=== PATIENT | male | born 1955 | race Caucasian/White ===

== ENCOUNTER 2020-03-25 01:18 | Outpatient (CLI) | payer MEDICARE, OTHER, SELFPAY ==
[2020-03-25 17:41] LABS: SARS-CoV-2 RNA PCR Negative
== END 2020-03-25 01:19 | disposition home or self-care (01) ==
LOC: ANHCOVIDDT 01:18
PROVIDERS: Visit Provider Internal Medicine Gastroenterology
DX: Z01.812 Encounter for preprocedural laboratory examination (principal); Z20.828 Contact with and (suspected) exposure to other viral communicable diseases
CPT/HCPCS: 87635; C9803; U0003

== ENCOUNTER 2020-03-27 02:27 | Day surgery (SDC) | payer MEDICARE, OTHER, SELFPAY ==
[2020-03-21 10:28] VITALS: BMI 25.2
[2020-03-27 07:11] VITALS: BP 148/83; PULSE 70; RESP 18; TEMP 36.4; O2SAT 99; BMI 25.2
[2020-03-27 07:26] LABS: Glucose Point of Care 138 (65-105)
[2020-03-27] MEDS: LACTATED RINGERS 1,000 ML 150 ML IV CONT (07:26)
--- NOTE | 2020-03-27 08:03 | P.PNAN_ITS ---
Anes - Initial Pre Proc Eval Procedure: Operation Date: 03/27/20 08:00 Proposed Procedures p Screening Colonoscopy - James Spence MD Date/Time: 03/27/20 08:03 Surgeon: James Spence MD Pre Op Diagnosis: hx of colon polyps Patient Data Age: 65 Gender: M Height: 5 ft 7 in Weight: 73.1 kg Last Vital Signs Temp 97.5 F L 03/27/20 07:11 Pulse 70 03/27/20 07:11 Resp 18 03/27/20 07:11 BP 148/83 H 03/27/20 07:11 Pulse Ox 99 03/27/20 07:11 Allergies Allergy/AdvReac Type Severity Reaction Status Date / Time Sulfa (Sulfonamide Allergy Rash Verified 03/27/20 07:10 Antibiotics) acetaminophen AdvReac Other Verified 03/27/20 07:10 NSAIDS (Non-Steroidal AdvReac Other Verified 03/27/20 07:10 Anti-Inflamma Home Medications Medication Instructions Recorded Confirmed Type allopurinol 100 mg PO DAILY 03/21/20 03/21/20 History amlodipine 5 mg PO DAILY 03/21/20 03/21/20 History benazepril 40 mg PO DAILY 03/21/20 03/21/20 History calcitriol 0.25 mcg PO 3XW 03/21/20 03/21/20 History hydralazine 100 mg PO BID 03/21/20 03/27/20 History insulin NPH isoph U-100 human See Rx Instructions .ROUTE .COMPLEX 03/21/20 03/21/20 History [Humulin N NPH U-100 Insulin] insulin regular human [Humulin R See Rx Instructions .ROUTE .COMPLEX 03/21/20 03/21/20 History Regular U-100 Insuln] mycophenolate sodium 540 mg PO BID 03/21/20 03/27/20 History tacrolimus 1 mg PO BID 03/21/20 03/21/20 History Laboratory Tests 03/27/20 07:23 POC Capillary Glucose 138 mg/dl H mg/dl (65-105) Patient hx anesthesia problems: none Family hx anesthesia problems: none PMFSH Past Medical History Medical History (Updated 03/27/20 @ 08:02 by Gorge Mancera MD) Diabetes Hyperlipidemia Hypertension Surgical History Surgical History (Updated 03/27/20 @ 08:02 by Gorge Mancera MD) H/O kidney transplant Social History Social History Smoking status: Never smoker Alcohol intake: current Drinks per week: 3 Alcohol use details: BEER Substance use: current Substance use type: marijuana Other substance usage details: MEDICAL CARD Last use: DAILY Living arrangements: with family Spiritual care concerns: No Anes - Eval Final PreProcedure Day of Procedure 03/27/20 08:03 Patient weight: normal Heart: regular rate and rhythm Lungs: clear to auscultation Airway: Mallampati scale class II Neurological: alert and oriented Last oral intake: >/= 8 hours ASA classification: III Emergent: no Anesthetic plan: proceed Anesthesia type and monitoring: general GIVS and standard monitoring Informed Consent: The patient's anesthetic plan and its attendant risks and bene fits were discussed with the patient/family/POA. Questions were solicited and answers provided to the satisfaction of the patient/family/POA.
--- NOTE | 2020-03-27 08:04 | WPDGICN ---
Assessment and Plan Assessment and plan (1) History of colon polyps: Code(s): Z86.010 - Personal history of colonic polyps Status: Acute Assessment and Plan: Patient has a history of colon polyps most recently 3 years ago multiple tubular adenomas were removed from the colon. Plan is for surveillance colonoscopy at this time. (2) Hypertension: Code(s): I10 - Essential (primary) hypertension Status: Acute (3) Diabetes: Code(s): E11.9 - Type 2 diabetes mellitus without complications Status: Acute (4) H/O kidney transplant: Code(s): Z94.0 - Kidney transplant status Status: Acute GI Consult Note Consult date/time: 03/27/20 08:04 HPI: Familia Bernstein is a 65 year old male Seen at the request of Dr. Miguel Ángel Chau. Patient presents for screening colonoscopy. Patient has a history of a colonoscopy 3 years ago that revealed multiple colon polyps. Patient presents today for surveillance examination. Histology of polyps confirmed tubular adenomatous colon polyps. Patient's family history is noncontributory. There is no family history of colon or rectal disease. Patient's current weight appetite bowel movements are normal. He denies abdominal pain. He has no bleeding. Patient has a history of a kidney transplant 2005. Currently felt to be stable. Review of Systems Review of Systems: All systems reviewed & are unremarkable except as noted in HPI and below PMFSH Past Medical History Medical History Diabetes Hyperlipidemia Hypertension Surgical History Surgical History (Updated 03/27/20 @ 08:06 by James Spence MD) H/O kidney transplant Social History Social History Smoking status: Never smoker Alcohol intake: current Drinks per week: 3 Alcohol use details: BEER Substance use: current Substance use type: marijuana Other substance usage details: MEDICAL CARD Last use: DAILY Living arrangements: with family Spiritual care concerns: No Meds Home Medications and Allergies Home Medications Medication Instructions Recorded Confirmed Type allopurinol 100 mg PO DAILY 03/21/20 03/21/20 History amlodipine 5 mg PO DAILY 03/21/20 03/21/20 History benazepril 40 mg PO DAILY 03/21/20 03/21/20 History calcitriol 0.25 mcg PO 3XW 03/21/20 03/21/20 History hydralazine 100 mg PO BID 03/21/20 03/27/20 History insulin NPH isoph U-100 human See Rx Instructions .ROUTE .COMPLEX 03/21/20 03/21/20 History [Humulin N NPH U-100 Insulin] insulin regular human [Humulin R See Rx Instructions .ROUTE .COMPLEX 03/21/20 03/21/20 History Regular U-100 Insuln] mycophenolate sodium 540 mg PO BID 03/21/20 03/27/20 History tacrolimus 1 mg PO BID 03/21/20 03/21/20 History Allergies Allergy/AdvReac Type Severity Reaction Status Date / Time Sulfa (Sulfonamide Allergy Rash Verified 03/27/20 07:10 Antibiotics) acetaminophen AdvReac Other Verified 03/27/20 07:10 NSAIDS (Non-Steroidal AdvReac Other Verified 03/27/20 07:10 Anti-Inflamma Vital Signs Vital Signs - 24 hr 03/27/20 07:11 Temperature 97.5 F L Pulse Rate 70 Respiratory Rate 18 Blood Pressure 148/83 H Pulse Oximetry 99 Exam Narrative: Exam Narrative: Physical exam reveals patient to be alert. Vital signs stable. HEENT exam unremarkable. Lungs are clear to auscultation and percussion. Heart is without murmur or extra sounds. Abdominal exam bowel sounds are present soft nontender with no organomegaly. Digital external rectal exam is normal.
[2020-03-27 08:34] VITALS: BP 116/63; PULSE 63; RESP 18; O2SAT 98
[2020-03-27 08:44] VITALS: BP 130/76; PULSE 64; RESP 16; O2SAT 98
[2020-03-27 08:45] LABS: Glucose Point of Care 123 (65-105)
[2020-03-27 08:54] VITALS: BP 154/91; PULSE 61; RESP 14; O2SAT 100
[2020-03-27 09:04] VITALS: BP 158/93; PULSE 65; RESP 19; O2SAT 100
== END 2020-03-27 09:10 | disposition home or self-care (01) ==
PROVIDERS: Visit Provider Internal Medicine Gastroenterology
PROC: 0DJD8ZZ Inspection of Lower Intestinal Tract, Via Natural or Artificial Opening Endoscopic (ICD-10-PCS; CPT 45378; principal; 2020-03-27 08:00)
DX: Z12.11 Encounter for screening for malignant neoplasm of colon (principal); D12.2 Benign neoplasm of ascending colon; D12.3 Benign neoplasm of transverse colon; D12.5 Benign neoplasm of sigmoid colon; K64.8 Other hemorrhoids; I10 Essential (primary) hypertension; E78.5 Hyperlipidemia, unspecified; E11.9 Type 2 diabetes mellitus without complications; Z79.4 Long term (current) use of insulin; Z94.0 Kidney transplant status; F12.90 Cannabis use, unspecified, uncomplicated
CPT/HCPCS: 45385; 88305; J2704; J7120

== ENCOUNTER 2025-04-06 12:58 | Outpatient (CLI) | payer MEDICARE, OTHER, SELFPAY ==
--- NOTE | ~2025-04-06 | CT_ITS ---
EXAMINATION: CT ankle LT wo con DATE: 04/06/2025 13:17 INDICATION: Evaluate left ankle fusion TECHNIQUE: High resolution computed tomography (CT) of the left ankle, mid and hindfoot was performed without intravenous contrast. Additional sagittal and coronal reconstructions were performed. Automated exposure control and iterative reconstruction technique were employed. The dose-length product was 202.02 mGy-cm. COMPARISON: None FINDINGS: Postoperative change of a left ankle and hindfoot arthrodesis with retrograde arlin extending across the body the calcaneus, the posterior talus and into the distal tibial diaphysis. There are a pair of transversely oriented interlocking metaphyseal screws and anterior to posteriorly directed interlocking screws extending across the calcaneus. There are some early osseous bridging across the posterior aspect of the tibiotalar joint space. There is suggestion of some early bridging developing at the lateral aspect of the posterior facet of the subtalar joint. Alignment appears near-anatomic. There are some lucent tracts in the calcaneus, talus and distal fibula consistent with previously removed instr umentation. The distal fibula has been resected. There multiple tiny foci of calcific debris/tiny bone fragments extending from the region of the resected fibula the posterior recess of the tibiotalar and subtalar joint spaces. No fractures. There is severe osteoarthritis at the fifth tarsal metatarsal joint with large likely degenerative subchondral cyst at the cuboid. Additional moderate osteoarthritis at the second-fourth tarsometatarsal joints and at the talonavicular joint and mild osteoarthritis at the remaining joints in the midfoot. There is some thickening of the peroneus longus longus and brevis tendons consistent with tendinopathy. There is approximately 3 cm long segment of significantly decreased attenuation along the course of the tendon at the level of the resected lateral malleolus suspicious for at least partial tear. There are heterotopic ossicles at what is likely the distal tear margin is located lateral to the body of the calcaneus. There is also fusiform thickening consistent with mild tendinosis of the Achilles tendon. IMPRESSION: 1. Postoperative change distal fibular resection and instrumented left ankle and subtalar arthrodesis with early osseous fusion posteriorly at the tibiotalar articulation and likely early/developing fusion at the lateral aspect of the subtalar joint. 2. 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 3. Peroneus longus and brevis tendinopathy with likely at least partial thickness tear at the level of the resected lateral malleolus. Assessment on CT is however significantly more limited than with MRI. 4. Mild Achilles tendinosis. Reviewed, dictated and finalized at location A. IMPRESSION: 1. Postoperative change distal fibular resection and instrumented left ankle an d subtalar arthrodesis with early osseous fusion posteriorly at the tibiotalar articulation and likely early/developing fusion at the lateral aspect of the ulrich btalar joint. 2. Polyarticular osteoarthritis, severe at the fifth tarsal metatarsal joint an d mild and moderate at the remaining joints in the mid and hindfoot. 3. Peroneus longus and brevis tendinopathy with likely at least partial thickne ss tear at the level of the resected lateral malleolus. Assessment on CT is how ever significantly more limited than with MRI. 4. Mild Achilles tendinosis.
== END 2025-04-06 12:59 | disposition home or self-care (01) ==
LOC: MICIMG 13:03
DX: M19.072 Primary osteoarthritis, left ankle and foot (principal); M76.72 Peroneal tendinitis, left leg; M76.62 Achilles tendinitis, left leg; Z47.89 Encounter for other orthopedic aftercare; Z98.1 Arthrodesis status
CPT/HCPCS: 73700